=== PATIENT | male | born 1960 | race Caucasian/White ===

== ENCOUNTER → 2020-01-20 16:09 | Outpatient (CLI) | payer OTHER, SELFPAY ==
--- NOTE | 2020-01-20 | DI.MRI.S_ITS ---
PROCEDURE: MR KNEE LT WO CON INDICATIONS: Pain in left knee TECHNIQUE: Noncontrast sagittal PD fast spin echo and T2 fast spin echo with fat saturation, sagittal 3-D FLASH with fat saturation; coronal T1 spin echo and PD fast spin echo with fat saturation, and axial PD fast spin echo with fat saturation through the knee. COMPARISON: None. FINDINGS: Image quality: Excellent. Menisci: There is radial tearing of the posterior horn medial meniscus at the meniscal root ligament insertion site. Medial extrusion of the medial meniscus is present. Amorphous high signal intensity within the medial meniscal body and posterior horn is present, demonstrating inferior articular surface extension. There is linear high signal intensity or thyroid traversing the lateral meniscal body, demonstrating superior articular surface extension. Cruciate ligaments: The anterior and posterior cruciate ligaments appear intact. Medial structures: The medial collateral ligament appears intact. Visualized portions of the pes anserinus tendons appear normal. There is moderate T2 signal is within the semimembranosus tendon at the tibial insertion site. No abnormal bursal fluid. Lateral structures: The lateral collateral ligament, long and short heads of the biceps femoris tendon appear intact. The popliteus tendon appears normal. Iliotibial band appears normal. Anterior structures: The quadriceps and patellar tendons appear intact. Patellar alignment is normal. No femoral trochlear dysplasia or ventral trochlear prominence. No edema in the infrapatellar fat pad. Bones and cartilage: No bone marrow contusions or fractures. There is mild tricompartmental periarticular osteophyte formation. There is severe articular cartilage loss overlying the mid weightbearing aspect of the medial femoral condyle. Moderate cartilage loss overlies the weightbearing aspects of the medial tibial plateau. Mild articular cartilage loss diffusely overlies the weightbearing aspects of the lateral femoral condyle and lateral tibial plateau. Severe articular cartilage loss overlies the patellar apex and adjacent aspects of the medial patellar facet. Joint space: There is a moderate knee joint effusion, a small ganglion cyst along the popliteus, and a trace Perez's cyst. Normal appearing synovial plicae are incidentally noted. IMPRESSION: 1. 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 2. Medial and lateral meniscal tearing. 3. Knee joint effusion and ganglion cyst along the popliteus. 4. Insertional tendinitis of the semimembranosus. Dictated by: Mathew Torres M.D. on 01/23/2020 at 11:06 Approved by: Mathew Torres M.D. on 01/23/2020 at 11:10
== END ==
PROVIDERS: PCP Family Medicine; Referring Provider Orthopaedic Surgery; Visit Provider Orthopaedic Surgery
DX: M25.562 Pain in left knee (principal); M17.12 Unilateral primary osteoarthritis, left knee; S83.242A Other tear of medial meniscus, current injury, left knee, initial encounter; S83.282A Other tear of lateral meniscus, current injury, left knee, initial encounter; M25.462 Effusion, left knee; M67.462 Ganglion, left knee; M76.892 Other specified enthesopathies of left lower limb, excluding foot
CPT/HCPCS: 73721